=== PATIENT | female | born 1970 | race Caucasian/White ===

== ENCOUNTER 2017-04-20 01:03 | Emergency (ER) | payer BC, OTHER ==
[2017-04-20 01:14] VITALS: RESP 16
[2017-04-20] MEDS ORDERED: HYDROmorphone 0.5 MG/0.5 ML SYRINGE IVP STA (01:28)
[2017-04-20] MEDS ORDERED: ONDANSETRON 4 MG/2 ML VIAL IVP STA (01:28)
--- NOTE | 2017-04-20 01:38 | ED ---
Abdominal Pain HPI - General Chief Complaint: Abdominal Pain Stated Complaint: left side pain Time Seen by Provider: 04/20/17 01:21 Source: patient Mode of arrival: ambulatory Limitations: no limitations - History of Present Illness Initial Comments: 46-year-old female patient presents to emergency department today for evaluation of left-sided abdominal pain. Patient states that this pain started early this morning. Patient states that she fell she may been constipated so did do a suppository, states that she did have a large bowel movement however the pain has persisted. She states that it has kind of traveled from the left upper quadrant to the left lower quadrant. She states that the area is tender to the touch however does feel better when she applies pressure over it. She states that she has been very nauseous throughout the day but has not vomited. She states the pain is an intense cramping pain. She is currently rating it 10 out of 10 on a pain scale. She denies any radiation of the pain to her back. Sates that she has been urinating frequently throughout the day but denies any dysuria, hematuria, or urinary urgency. Patient denies any recent rash, fever, chills, shortness breath, chest pain, diarrhea, had a cheesy, melena, back pain , numbness, tingling, dizziness, weakness, headache, visual changes, or any other complaints. - Related Data Allergies Allergy/AdvReac Type Severity Reaction Status Date / Time Penicillins Allergy Swelling Verified 04/20/17 01:14 Review of Systems ROS Statement: Those systems with pertinent positive or pertinent negative responses have been documented in the HPI. ROS Other: All systems not noted in ROS Statement are negative. Past Medical History Past Medical History: Hyperlipidemia Additional Past Medical History / Comment(s): lupus. fibromyalgia. degenerative disc disease. History of Any Multi-Drug Resistant Organisms: MRSA Date of last positivie culture/infection: 2010 MDRO Source:: buttocks Past Surgical History: Cholecystectomy Past Psychological History: No Psychological Hx Reported Smoking Status: Current every day smoker Past Alcohol Use History: None Reported Past Drug Use History: None Reported General Exam Limitations: no limitations General appearance: alert, in no apparent distress, other (This is a well- developed, well-nourished adult female patient in no acute distress. Vital signs upon presentation are temperature 98.5F, pulse 88, respirations 16, blood pressure 134/71, pulse ox 97% on room air.) Eye exam: Present: normal appearance, PERRL, EOMI. Absent: scleral icterus, conjunctival injection, periorbital swelling ENT exam: Present: normal exam, normal oropharynx, mucous membranes moist Respiratory exam: Present: normal lung sounds bilaterally. Absent: respiratory distress, wheezes, rales, rhonchi, stridor Cardiovascular Exam: Present: regular rate, normal rhythm, normal heart sounds. Absent: systolic murmur, diastolic murmur, rubs, gallop, clicks GI/Abdominal exam: Present: soft, normal bowel sounds. Absent: distended, tenderness, guarding, rebound, rigid Back exam: Present: normal inspection. Absent: CVA tenderness (R), CVA tenderness (L) Neurological exam: Present: alert, oriented X3, CN II-XII intact Psychiatric exam: Present: normal affect, normal mood Skin exam: Present: warm, dry, intact, normal color. Absent: rash Course Vital Signs 04/20/17 04/20/17 01:10 03:07 Temperature 98.5 F 98.3 F Pulse Rate 88 87 Respiratory 16 16 Rate Blood Pressure 134/71 128/70 O2 Sat by Pulse 97 97 Oximetry Medical Decision Making - Medical Decision Making 46-year-old female patient presented for evaluation of left-sided abdominal pain. Physical exam was overall unremarkable, patient was not tender. Labs reviewed and were unremarkable. Urinalysis was also unremarkable. Patient was feeling better here in the department. She discharged home at this time to follow-up with her primary care physician. She is instructed to return here immediately for any new, worsening, or concerning symptoms. She verbalizes understanding and agrees this plan. - Lab Data Result diagrams: 04/20/17 01:40 04/20/17 01:40 Lab Results 04/20/17 04/20/17 04/20/17 Range/Units 01:40 01:40 01:55 WBC 8.0 (3.8-10.6) k/uL RBC 4.94 (3.80-5.40) m/uL Hgb 14.1 (11.4-16.0) gm/dL Hct 44.1 (34.0-46.0) % MCV 89.3 (80.0-100.0) fL MCH 28.6 (25.0-35.0) pg MCHC 32.0 (31.0-37.0) g/dL RDW 13.7 (11.5-15.5) % Plt Count 215 (150-450) k/uL Neutrophils % 62 % Lymphocytes % 27 % Monocytes % 7 % Eosinophils % 2 % Basophils % 1 % Neutrophils # 5.0 (1.3-7.7) k/uL Lymphocytes # 2.1 (1.0-4.8) k/uL Monocytes # 0.6 (0-1.0) k/uL Eosinophils # 0.2 (0-0.7) k/uL Basophils # 0.1 (0-0.2) k/uL Sodium 136 L (137-145) mmol/L Potassium 4.0 (3.5-5.1) mmol/L Chloride 109 H (98-107) mmol/L Carbon Dioxide 20 L (22-30) mmol/L Anion Gap 7 mmol/L BUN 11 (7-17) mg/dL Creatinine 0.80 (0.52-1.04) mg/dL Est GFR (MDRD) Af Amer >60 (>60 ml/min/1.73 sqM) Est GFR (MDRD) Non-Af >60 (>60 ml/min/1.73 sqM) Glucose 97 (74-99) mg/dL Calcium 9.4 (8.4-10.2) mg/dL Total Bilirubin 0.5 (0.2-1.3) mg/dL AST 24 (14-36) U/L ALT 32 (9-52) U/L Alkaline Phosphatase 91 (38-126) U/L Total Protein 6.6 (6.3-8.2) g/dL Albumin 4.0 (3.5-5.0) g/dL Amylase 57 (30-110) U/L Lipase 218 (23-300) U/L Urine Color Yellow Urine Appearance Cloudy H (Clear) Urine pH 6.0 (5.0-8.0) Ur Specific [place] 1.012 (1.001-1.035) Urine Protein Negative (Negative) Urine Glucose (UA) Negative (Negative) Urine Ketones Trace H (Negative) Urine Blood Negative (Negative) Urine Nitrite Negative (Negative) Urine Bilirubin Negative (Negative) Urine Urobilinogen <2.0 (<2.0) mg/dL Ur Leukocyte Esterase Negative (Negative) Urine RBC <1 (0-5) /hpf Urine WBC 1 (0-5) /hpf Ur Squamous Epith Cells 9 H (0-4) /hpf Urine Bacteria Rare H (None) /hpf Urine Mucus Rare H (None) /hpf - Radiology Data Radiology results: report reviewed, image reviewed Two-view x-ray of the abdomen shows no sign of intestinal obstruction or pneumoperitoneum. There are clips from cholecystectomy. Fecal pattern is normal. Lung bases are clear. There are no pathologic calcifications over the kidneys. There is no sign of a mass. Impression by Dr. Brower shows nonacute abdomen. Disposition Clinical Impression: Abdominal pain Disposition: HOME SELF-CARE Condition: Good Instructions: Abdominal Pain (ED) Additional Instructions: Increase fluids. Start with a bland diet and advance as tolerated. Take medications as directed. Follow-up with your primary care physician for recheck in 1-2 days. Return here immediately for any new, worsening, or concerning symptoms. Referrals: Nonstaff,Physician [Primary Care Provider] - 1-2 days Time of Disposition: 02:51
[2017-04-20 01:53] LABS: Basophils # (A) 0.1 k/uL (0-0.2); Basophils % (A) 1 %; CH 29.4; CHCM 33.1; Eosinophils # (A) 0.2 k/uL (0-0.7); Eosinophils % (A) 2 %; HCT 44.1 % (34.0-46.0); HDW 2.64; HGB 14.1 gm/dL (11.4-16.0); Luc % (Auto) 1; Lymphocytes # (A) 2.1 k/uL (1.0-4.8); Lymphocytes % (A) 27 %; MCH 28.6 pg (25.0-35.0); MCV 89.3 fL (80.0-100.0); Mean Platelet Volume 6.8; Monocytes # (A) 0.6 k/uL (0-1.0); Monocytes % (A) 7 %; Neutrophils % (A) 62 %; RBC 4.94 m/uL (3.80-5.40); RDW 13.7 % (11.5-15.5); WBC (Perox) 7.69
[2017-04-20 02:10] LABS: ALT 32 U/L (9-52); AST 24 U/L (14-36); Alkaline Phosphatase 91 U/L (38-126); Amylase 57 U/L (30-110); Anion Gap 7 mmol/L; Blood Urea Nitrogen 11 mg/dL (7-17); Calcium 9.4 mg/dL (8.4-10.2); Carbon Dioxide 20 mmol/L (22-30); Chloride 109 mmol/L (98-107); Glucose 97 mg/dL (74-99); Non-African American GFR(MDRD) >60 (>60 ml/min/1.73 sqM); Sodium 136 mmol/L (137-145); Total Bilirubin 0.5 mg/dL (0.2-1.3); Total Protein 6.6 g/dL (6.3-8.2)
--- NOTE | 2017-04-20 02:10 | XR ---
EXAMINATION TYPE: XR KUB DATE OF EXAM: 04/20/2017 COMPARISON: NONE HISTORY: Abdominal pain TECHNIQUE: 2 views FINDINGS: There is no sign of intestinal obstruction or pneumoperitoneum. There are clips from cholec ystectomy. Fecal pattern is normal. Lung bases are clear. There are no pathologic calcifications over the kidneys. There is no sign of a mass. IMPRESSION: Nonacute abdomen.
[2017-04-20 02:31] LABS: Appearance,Urine Cloudy (Clear); Bacteria,Urine Rare /hpf; Bilirubin,Urine Negative (Negative); Glucose,Urine (UA) Negative (Negative); Ketones,Urine Trace (Negative); Leukocyte Esterase,Urine Negative (Negative); Mucus,Urine Rare /hpf; Nitrite,Urine Negative (Negative); Particle Count 2900; Protein,Urine Negative (Negative); RBC,Urine <1 /hpf (0-5); Specific Gravity,Urine 1.012 (1.001-1.035); Squamous Epithelial Cell,Urine 9 /hpf (0-4); UA Billing (MACRO vs. MICRO) MICRO; Urobilinogen,Urine <2.0 mg/dL (<2.0); WBC,Urine 1 /hpf (0-5)
[2017-04-20] MEDS ORDERED: ONDANSETRON 4 MG ODT STARTER PACK 2 TAB BTL PO STA (02:51)
[2017-04-20 03:08] VITALS: BP 128/70; PULSE 87; TEMP 98.3
== END 2017-04-20 03:07 | disposition home or self-care (01) ==
LOC: EC 01:03
DX: R10.9 Unspecified abdominal pain (principal); R11.0 Nausea; K59.00 Constipation, unspecified; F17.200 Nicotine dependence, unspecified, uncomplicated; Z86.14 Personal history of Methicillin resistant Staphylococcus aureus infection; Z90.49 Acquired absence of other specified parts of digestive tract; Z88.0 Allergy status to penicillin
CPT/HCPCS: 99284 ×2; 96374 ×2; 96375 ×2; 36415; 80053; 82150; 83690; 85025; 81001; 74000; J2405; S0119; J1170

== ENCOUNTER 2021-04-03 06:23 | Observation (INO) | payer BC, MEDICARE ==
[2021-04-03] MEDS ORDERED: ASPIRIN 81 MG PO STA (06:48)
[2021-04-03 07:07] LABS: Basophils # (A) 0.1 k/uL (0-0.2); Basophils % (A) 1 %; Eosinophils # (A) 0.2 k/uL (0-0.7); Eosinophils % (A) 4 %; HCT 43.1 % (34.0-46.0); Lymphocytes # (A) 2.3 k/uL (1.0-4.8); Lymphocytes % (A) 42 %; MCH 30.4 pg (25.0-35.0); MCHC 32.6 g/dL (31.0-37.0); MCV 93.3 fL (80.0-100.0); Mean Platelet Volume 7.3; Monocytes # (A) 0.3 k/uL (0-1.0); Monocytes % (A) 6 %; Neutrophils # (A) 2.5 k/uL (1.3-7.7); Neutrophils % (A) 45 %; Platelet Count 207 k/uL (150-450); RBC 4.62 m/uL (3.80-5.40); RDW 13.9 % (11.5-15.5); WBC 5.6 k/uL (3.8-10.6)
--- NOTE | 2021-04-03 07:15 | ED ---
General Adult HPI - General Chief complaint: Chest Pain Stated complaint: Chest Pain Time Seen by Provider: 04/03/21 06:34 Source: patient Mode of arrival: wheelchair Limitations: no limitations - History of Present Illness Initial comments: 50-year-old female with a past medical history of hypertension, lupus, fibromyalgia presents to the emergency room for a chief complaint of chest pain. Patient states that about an hour prior to get a squeezing chest pain. States it woke her up from [facility]. Patient states she and first was nauseous and diaphoretic. Patient states that has resolved but she is still having the squeezing pain in her chest. Denies any radiating pain. Patient does admit to smoking history and current smoker status. Patient has a history of hyperlipidemia for which she takes medications however denies hypertension or diabetes.Patient has no other complaints at this time including shortness of breath, abdominal pain, nausea or vomiting, headache, or visual changes. - Related Data Home Medications Medication Instructions Recorded Confirmed Atorvastatin Calcium [Lipitor] 20 mg PO DAILY 04/03/21 04/03/21 DULoxetine HCL [Cymbalta] 20 mg PO DAILY 04/03/21 04/03/21 HYDROcodone/APAP 10-325MG [[place] 1 tab PO Q6HR PRN 04/03/21 04/03/21 10-325] Hydroxychloroquine Sulfate 200 mg PO BID 04/03/21 04/03/21 [Plaquenil] Allergies Allergy/AdvReac Type Severity Reaction Status Date / Time Penicillins Allergy Swelling Verified 04/03/21 08:10 Review of Systems ROS Statement: Those systems with pertinent positive or pertinent negative responses have been documented in the HPI. ROS Other: All systems not noted in ROS Statement are negative. Past Medical History Past Medical History: Hyperlipidemia Additional Past Medical History / Comment(s): lupus. fibromyalgia. degenerative disc disease. History of Any Multi-Drug Resistant Organisms: MRSA Date of last positivie culture/infection: 2010 MDRO Source:: buttocks Past Surgical History: Cholecystectomy Past Psychological History: No Psychological Hx Reported Smoking Status: Current every day smoker Past Alcohol Use History: None Reported Past Drug Use History: None Reported General Exam Limitations: no limitations General appearance: alert, in no apparent distress Head exam: Present: atraumatic, normocephalic, normal inspection Eye exam: Present: normal appearance, PERRL, EOMI. Absent: scleral icterus, conjunctival injection, periorbital swelling ENT exam: Present: normal exam, mucous membranes moist Neck exam: Present: normal inspection, full ROM. Absent: tenderness, meningismus, lymphadenopathy Respiratory exam: Present: normal lung sounds bilaterally. Absent: respiratory distress, wheezes, rales, rhonchi, stridor Cardiovascular Exam: Present: regular rate, normal rhythm, normal heart sounds GI/Abdominal exam: Present: soft, normal bowel sounds. Absent: distended, tenderness, guarding, rebound, rigid Neurological exam: Present: alert Course Vital Signs 04/03/21 04/03/21 04/03/21 06:26 06:38 07:01 Temperature 98.3 F Pulse Rate 101 H 98 88 Respiratory 16 18 Rate Blood Pressure 153/92 126/90 O2 Sat by Pulse 97 99 Oximetry 04/03/21 07:46 Temperature Pulse Rate 68 Respiratory 18 Rate Blood Pressure 124/78 O2 Sat by Pulse 99 Oximetry EKG Findings - EKG Comments: EKG Findings:: Normal sinus rhythm, ventricular rate 86, [place] interval 138, QTc 461 Medical Decision Making - Medical Decision Making Vitals are stable. Patient is well-appearing. HPI and physical exam as documented. CBC and CMP unremarkable. Troponin initially negative. EKG nonischemic. However given typical symptoms as well as risk factors patient will be admitted for cardiology consultation and repeat troponin. - Lab Data Result diagrams: 04/03/21 06:56 04/03/21 06:56 Lab Results 04/03/21 04/03/21 04/03/21 Range/Units 06:56 06:56 06:56 WBC 5.6 (3.8-10.6) k/uL RBC 4.62 (3.80-5.40) m/uL Hgb 14.0 (11.4-16.0) gm/dL Hct 43.1 (34.0-46.0) % MCV 93.3 (80.0-100.0) fL MCH 30.4 (25.0-35.0) pg MCHC 32.6 (31.0-37.0) g/dL RDW 13.9 (11.5-15.5) % Plt Count 207 (150-450) k/uL MPV 7.3 Neutrophils % 45 % Lymphocytes % 42 % Monocytes % 6 % Eosinophils % 4 % Basophils % 1 % Neutrophils # 2.5 (1.3-7.7) k/uL Lymphocytes # 2.3 (1.0-4.8) k/uL Monocytes # 0.3 (0-1.0) k/uL Eosinophils # 0.2 (0-0.7) k/uL Basophils # 0.1 (0-0.2) k/uL PT 9.6 (9.0-12.0) sec INR 0.9 (<1.2) APTT 21.8 L (22.0-30.0) sec D-Dimer 0.43 (<0.60) mg/L FEU Sodium 139 (137-145) mmol/L Potassium 4.1 (3.5-5.1) mmol/L Chloride 110 H (98-107) mmol/L Carbon Dioxide 22 (22-30) mmol/L Anion Gap 7 mmol/L BUN 12 (7-17) mg/dL Creatinine 0.80 (0.52-1.04) mg/dL Est GFR (CKD-EPI)AfAm >90 (>60 ml/min/1.73 sqM) Est GFR (CKD-EPI)NonAf 86 (>60 ml/min/1.73 sqM) Glucose 103 H (74-99) mg/dL Calcium 9.1 (8.4-10.2) mg/dL Magnesium 2.0 (1.6-2.3) mg/dL Total Bilirubin 0.4 (0.2-1.3) mg/dL AST 28 (14-36) U/L ALT 21 (4-34) U/L Alkaline Phosphatase 86 (38-126) U/L Troponin I (0.000-0.034) ng/mL NT-Pro-B Natriuret Pep pg/mL Total Protein 6.6 (6.3-8.2) g/dL Albumin 3.8 (3.5-5.0) g/dL Lipase 221 (23-300) U/L 04/03/21 04/03/21 Range/Units 06:56 06:56 WBC (3.8-10.6) k/uL RBC (3.80-5.40) m/uL Hgb (11.4-16.0) gm/dL Hct (34.0-46.0) % MCV (80.0-100.0) fL MCH (25.0-35.0) pg MCHC (31.0-37.0) g/dL RDW (11.5-15.5) % Plt Count (150-450) k/uL MPV Neutrophils % % Lymphocytes % % Monocytes % % Eosinophils % % Basophils % % Neutrophils # (1.3-7.7) k/uL Lymphocytes # (1.0-4.8) k/uL Monocytes # (0-1.0) k/uL Eosinophils # (0-0.7) k/uL Basophils # (0-0.2) k/uL PT (9.0-12.0) sec INR (<1.2) APTT (22.0-30.0) sec D-Dimer (<0.60) mg/L FEU Sodium (137-145) mmol/L Potassium (3.5-5.1) mmol/L Chloride (98-107) mmol/L Carbon Dioxide (22-30) mmol/L Anion Gap mmol/L BUN (7-17) mg/dL Creatinine (0.52-1.04) mg/dL Est GFR (CKD-EPI)AfAm (>60 ml/min/1.73 sqM) Est GFR (CKD-EPI)NonAf (>60 ml/min/1.73 sqM) Glucose (74-99) mg/dL Calcium (8.4-10.2) mg/dL Magnesium (1.6-2.3) mg/dL Total Bilirubin (0.2-1.3) mg/dL AST (14-36) U/L ALT (4-34) U/L Alkaline Phosphatase (38-126) U/L Troponin I <0.012 (0.000-0.034) ng/mL NT-Pro-B Natriuret Pep 173 pg/mL Total Protein (6.3-8.2) g/dL Albumin (3.5-5.0) g/dL Lipase (23-300) U/L Disposition Clinical Impression: Chest pain Disposition: ADMITTED IP TO THIS [facility] Is patient prescribed a controlled substance at d/c from ED?: No Referrals: Nonstaff,Physician [Primary Care Provider] - 1-2 days Time of Disposition: 08:33
[2021-04-03 07:19] LABS: ALT 21 U/L (4-34); AST 28 U/L (14-36); African American GFR (CKD) >90 (>60 ml/min/1.73 sqM); Albumin 3.8 g/dL (3.5-5.0); Alkaline Phosphatase 86 U/L (38-126); Anion Gap 7 mmol/L; Blood Urea Nitrogen 12 mg/dL (7-17); Calcium 9.1 mg/dL (8.4-10.2); Carbon Dioxide 22 mmol/L (22-30); Chloride 110 mmol/L (98-107); Glucose 103 mg/dL (74-99); Lipase 221 U/L (23-300); Non-African American GFR(CKD) 86 (>60 ml/min/1.73 sqM); Potassium 4.1 mmol/L (3.5-5.1); Sodium 139 mmol/L (137-145); Total Bilirubin 0.4 mg/dL (0.2-1.3); Total Protein 6.6 g/dL (6.3-8.2)
[2021-04-03 07:34] LABS: INR 0.9 (<1.2); Prothrombin Time 9.6 sec (9.0-12.0)
[2021-04-03 07:41] LABS: Partial Thromboplastin Time 21.8 sec (22.0-30.0)
--- NOTE | 2021-04-03 07:48 | XR ---
EXAMINATION TYPE: XR chest 2V DATE OF EXAM: 04/03/2021 COMPARISON: None HISTORY: 50-year-old female with chest pain. TECHNIQUE: PA and lateral views FINDINGS: The cardiomediastinal silhouette, aorta, and pulmonary vasculature are within normal limits. Subtle p atchy interstitial changes. No consolidation or pleural effusion. IMPRESSION: Subtle patchy interstitial changes. Correlate to exclude bronchitis or underlying atypical or COVID p neumonia.
[2021-04-03] MEDS ORDERED: NITROGLYCERIN SL TABS 0.4 MG TAB SUBLINGUAL PRN (08:33)
--- NOTE | 2021-04-03 08:59 | P.HPIM ---
<Hieu Whitman - Last Filed: 04/03/21 16:58> History of Present Illness H&P Date: 04/03/21 History of Presenting Illness: Patient is a 50-year-old female with a past medical history of hyperlipidemia, nicotine use, lupus, and fibromyalgia. She presented to the emergency department with a chief complaint of chest pain. patient reports that she was awoken this morning with a pain to her mid sternal chest. Patient describes this pain as a tightness states it was almost like a contraction. The patient states this pain was constant and shortly after accompanied by nausea and diaphoresis. She denies any radiation of pain or experiencing any other complaints including shortness of breath, cough, or congestion. Patient was seen and fully evaluated in the emergency department. CBC, BMP, coags, liver profile, troponin, and d- dimer are all unremarkable .EKG normal sinus rhythm at 86 bpm with no noted T- wave or ST abnormalities. chest x-ray revealing subtle patchy interstitial changes possible bronchitis versus underlying atypical for Covid pneumonia. Patient was admitted under our services with consultation to cardiology. upon physical examination patient reports mild tightness to her chest remains in midsternal area. She denies having any recent infections or exposure to known ill contacts. Reports that she is vaccinated for Covid. She denies having any recent fevers, chills, headache, lightheadedness, dizziness, changes in her vision or hearing, palpitations, shortness of breath, dyspnea with exertion, cough or congestion, abdominal pain, vomiting, or experiencing any numbness/tingling/weakness/swelling in her extremities. Review of systems: Pertinent positives and negatives as discussed in HPI, a complete review of systems was performed and all other systems are negative. Physical exam: Vital signs reviewed and stable. General: Nontoxic, no distress and appears stated age. Derm: Skin warm and dry, normal coloration for ethnicity. Head: Atraumatic, normocephalic and symmetric. Eyes: EOMs intact, no lid lag, and anicteric sclera Mouth: no lip lesions, mucus membranes moist Cardiovascular: regular rate and rhythm with normal S1S2, no murmur, positive posterior tibial pulses bilaterally, and cap refill < 2 seconds. Lungs: Respirations even, regular, and unlabored on room air. Lungs CTA bilaterally, no rhonchi, no rales, no wheezing, and no accessory muscle usage. Abdominal: soft, nontender to palpation, no guarding, no appreciable organomegaly Ext: ROM intact. No gross muscle atrophy, no edema, no contractures Neuro: Speech clear, face symmetrical and CN II-XII grossly intact with no noted focal neuro deficits Psych: Alert and oriented to person, place, time, and situation. Appropriate and pleasant affect. Assessment and Plan of Care: Atypical chest pain/tightness -.EKG normal sinus rhythm at 86 bpm with no noted T-wave or ST abnormalities. Troponin < 0.012. D-dimer negative. -Chest x-ray revealing subtle patchy interstitial changes possible bronchitis versus underlying atypical for Covid pneumonia. -Cardiology consult -Telemetry monitoring -Trend troponins -Cardiac diet -Aspirin, atorvastatin -Lipid profile with a.m. labs. Hyperlipidemia Continuation of daily medication regimen with atorvastatin. Lipid profile with a.m. labs. Nicotine use Continue to educate on and encourage the benefits of smoking cessation and the risks associated with continued use. Nicotine patch. Other chronic medical conditions include: Lupus and fibromyalgia Symptomatic care and pain management continuation of daily medication regimen. The patient is admitted with an anticipated greater than 2 midnight stay for evaluation of chest pain. CODE STATUS: Full code DVT prophylaxis: Heparin Discussed with: Patient, pt's , and RN Anticipated discharge date: 1-[address]: home A total of 45 minutes was spent on the care of this complex patient more than 50% of the time was spent in counseling and care coordination. Past Medical History Past Medical History: Hyperlipidemia Additional Past Medical History / Comment(s): lupus. fibromyalgia. degenerative disc disease. History of Any Multi-Drug Resistant Organisms: MRSA Date of last positivie culture/infection: 2010 MDRO Source:: buttocks Past Surgical History: Cholecystectomy Past Psychological History: No Psychological Hx Reported Smoking Status: Current every day smoker Past Alcohol Use History: None Reported Past Drug Use History: None Reported Medications and Allergies Home Medications Medication Instructions Recorded Confirmed Type Atorvastatin Calcium [Lipitor] 20 mg PO DAILY 04/03/21 04/03/21 History DULoxetine HCL [Cymbalta] 20 mg PO DAILY 04/03/21 04/03/21 History HYDROcodone/APAP 10-325MG [[place] 1 tab PO Q6HR PRN 04/03/21 04/03/21 History 10-325] Hydroxychloroquine Sulfate 200 mg PO BID 04/03/21 04/03/21 History [Plaquenil] Allergies Allergy/AdvReac Type Severity Reaction Status Date / Time Penicillins Allergy Swelling Verified 04/03/21 08:10 Physical Exam Vitals: Vital Signs Temp Pulse Resp BP Pulse Ox 04/03/21 08:53 69 18 117/75 98 04/03/21 07:46 68 18 124/78 99 04/03/21 07:01 88 18 126/90 99 04/03/21 06:38 98 04/03/21 06:26 98.3 F 101 H 16 153/92 97 Intake and Output 04/02/21 04/03/21 04/03/21 22:59 06:59 14:59 Other: Weight 87.09 kg Results CBC & Chem 7: 04/03/21 06:56 04/03/21 06:56 Labs: Abnormal Lab Results - Last 24 Hours (Table) 04/03/21 04/03/21 Range/Units 06:56 06:56 APTT 21.8 L (22.0-30.0) sec Chloride 110 H (98-107) mmol/L Glucose 103 H (74-99) mg/dL <Olivia Vinson - Last Filed: 04/03/21 18:20> Physical Exam Osteopathic Statement: *. No significant issues noted on an osteopathic structural exam other than those noted in the History and Physical/Consult. Vitals: Vital Signs Temp Pulse Pulse Resp BP BP Pulse Ox 04/03/21 15:00 98.1 F 75 18 118/83 100 04/03/21 09:07 98.0 F 63 18 120/78 98 04/03/21 09:00 98.3 F 69 18 117/75 98 04/03/21 08:53 69 18 117/75 98 04/03/21 07:46 68 18 124/78 99 04/03/21 07:01 88 18 126/90 99 04/03/21 06:38 98 04/03/21 06:26 98.3 F 101 H 16 153/92 97 Intake and Output 04/03/21 04/03/21 04/03/21 06:59 14:59 22:59 Intake Total 240 Balance 240 Intake: Oral 240 Other: # Voids 1 Weight 87.09 kg 87.09 kg Results CBC & Chem 7: 04/03/21 06:56 04/03/21 06:56 Labs: Abnormal Lab Results - Last 24 Hours (Table) 04/03/21 04/03/21 Range/Units 06:56 06:56 APTT 21.8 L (22.0-30.0) sec Chloride 110 H (98-107) mmol/L Glucose 103 H (74-99) mg/dL Assessment and Plan Assessment: Patient seen and evaluated by me independently. Patient was also seen by ARTURO, the original author of this note. I am in agreement with the subjective, physical exam, and assessment and plan as documented with the addition/changes of my exam and assessment below. Gen: awake, alert HEENT: normocephalic, atraumatic, good hearing acuity, moist mucous membranes Resp: good air exchange, breathing comfortably with no accessory muscle use, mild left-sided posterior crackles, no wheezing CVS: good distal perfusion x 4, regular rate and rhythm without murmurs GI: soft, NTTP, ND : no SPT, no CVAT, coulter catheter not present MSK: no pitting edema, no clubbing, positive pain to palpation of the right upper chest Neuro: non-focal, moving all extremities Psych: cooperative, euthymic mood Plan: Cardiology consult Stress test Trend troponins Pain control Telemetry for 24 hours Likely discharge tomorrow morning
[2021-04-03] MEDS: HYDROXYCHLOROQUINE SULFATE 200 MG TAB PO SCH ×2 (10:27→20:57)
[2021-04-03] MEDS: ATORVASTATIN 20 MG TAB PO SCH (10:27)
[2021-04-03] MEDS: DULoxetine HCL 20 MG CAPSULE.DR PO SCH (10:27)
--- NOTE | 2021-04-03 11:17 | P.CRDCN ---
History of Present Illness History of present illness: HISTORY OF PRESENTING ILLNESS This is a pleasant 50-year-old with past medical history significant for lupus, rheumatoid arthritis, fibromyalgia, hyperlipidemia, tobacco abuse who presents s econdary to episode of chest pain. Patient states this woke her up from her sleep and normally she was used to some degree of aches and pains however was so intense that she presented to emergency department. She denied any associated shortness breath. She did feel somewhat nauseous and somewhat flushed however no diaphoresis. She does not usually get these episodes. She received aspirin and emergency department and no other medications and it slowly eased up. She has had a stress test approximately 2 years ago however no recent testing. She had previously stopped smoking however started up again. Occasional alcohol and no illicit drugs. Family history of father with a stroke in his 70s. She denies any further chest pain since admission although does have some reproducible discomfort on exam. DIAGNOSTICS I'll count 5.6, hemoglobin 14.0, d-dimer 0.43, creatinine 0.8, troponin less than 0.0122, proBNP 173, preston virus not detected, EKG shows normal sinus rhythm, normal axis, minimal 0.[address] depressions in V4 through V6. Chest x- ray shows subtle patchy interstitial changes correlate to exclude bronchitis or underlying atypical or Covid pneumonia. REVIEW OF SYSTEMS At the time of my exam: CONSTITUTIONAL: Denies fever or chills. CARDIOVASCULAR: +chest pain, no shortness of breath, orthopnea, PND or palpitations. RESPIRATORY: Denies cough. GASTROINTESTINAL: Denies abdominal pain, diarrhea, constipation, nausea or vomiting. MUSCULOSKELETAL: Denies myalgias. NEUROLOGIC: Denies numbness, tingling or weakness. ENDOCRINE: Denies fatigue, weight change, polydipsia or polyurina. GENITOURINARY: Denies burning, hematuria or urgency with micturation. HEMATOLOGIC: Denies history of anemia or bleeding. PHYSICAL EXAMINATION Vital signs reviewed. CONSTITUTIONAL: No apparent distress. HEENT: Head is normocephalic. Pupils are equal, round. Sclerae anicteric. Mucous membranes of the mouth are moist. No JVD. No carotid bruit. CHEST EXAMINATION: Lungs are clear to auscultation. No chest wall tenderness is noted on palpation or with deep breathing. HEART EXAMINATION: Regular rate and rhythm. S1, S2 heard. No murmurs, gallops or rub. ABDOMEN: Soft, nontender. Positive bowel sounds. EXTREMITIES: 2+ peripheral pulses, no lower extremity edema and no calf tenderness. NEUROLOGIC EXAMINATION: Patient is awake, alert and oriented x3. ASSESSMENT 1. Atypical chest pain 2. Interstitial changes may be consistent with bronchitis versus pneumonia 3. Hyperlipidemia 4. Lupus 5. Rheumatoid arthritis 6. Fibromyalgia 7. Tobacco abuse PLAN We will check 2-D echo to evaluate for left ventricular function as well as a stress echo to rule out any inducible ischemia. Patient's chest pain appears atypical and is mildly reproducible on exam however states the majority of the pain felt a little bit different. Discussed tobacco cessation. If stress test unrevealing, patient may be discharged home from cardiology standpoint. Past Medical History Past Medical History: Hyperlipidemia Additional Past Medical History / Comment(s): lupus. fibromyalgia. degenerative disc disease. History of Any Multi-Drug Resistant Organisms: MRSA Date of last positivie culture/infection: 2010 MDRO Source:: buttocks Past Surgical History: Cholecystectomy Past Anesthesia/Blood Transfusion Reactions: No Reported Reaction Past Psychological History: No Psychological Hx Reported Smoking Status: Current every day smoker Past Alcohol Use History: None Reported Past Drug Use History: None Reported Medications and Allergies Home Medications Medication Instructions Recorded Confirmed Type Atorvastatin Calcium [Lipitor] 20 mg PO DAILY 04/03/21 04/03/21 History DULoxetine HCL [Cymbalta] 20 mg PO DAILY 04/03/21 04/03/21 History HYDROcodone/APAP 10-325MG [[place] 1 tab PO Q6HR PRN 04/03/21 04/03/21 History 10-325] Hydroxychloroquine Sulfate 200 mg PO BID 04/03/21 04/03/21 History [Plaquenil] Allergies Allergy/AdvReac Type Severity Reaction Status Date / Time Penicillins Allergy Swelling Verified 04/03/21 08:10 Physical Exam Vitals: Vital Signs Temp Pulse Pulse Resp BP BP Pulse Ox 04/03/21 09:07 98.0 F 63 18 120/78 98 04/03/21 09:00 98.3 F 69 18 117/75 98 04/03/21 08:53 69 18 117/75 98 04/03/21 07:46 68 18 124/78 99 04/03/21 07:01 88 18 126/90 99 04/03/21 06:38 98 04/03/21 06:26 98.3 F 101 H 16 153/92 97 Intake and Output 04/02/21 04/03/21 04/03/21 22:59 06:59 14:59 Other: Weight 87.09 kg 87.09 kg Results 04/03/21 06:56 04/03/21 06:56 Cardiac Enzymes 04/03/21 04/03/21 04/03/21 Range/Units 06:56 06:56 09:47 AST 28 (14-36) U/L Troponin I <0.012 <0.012 (0.000-0.034) ng/mL Coagulation 04/03/21 Range/Units 06:56 PT 9.6 (9.0-12.0) sec APTT 21.8 L (22.0-30.0) sec CBC 04/03/21 Range/Units 06:56 WBC 5.6 (3.8-10.6) k/uL RBC 4.62 (3.80-5.40) m/uL Hgb 14.0 (11.4-16.0) gm/dL Hct 43.1 (34.0-46.0) % Plt Count 207 (150-450) k/uL Comprehensive Metabolic Panel 04/03/21 Range/Units 06:56 Sodium 139 (137-145) mmol/L Potassium 4.1 (3.5-5.1) mmol/L Chloride 110 H (98-107) mmol/L Carbon Dioxide 22 (22-30) mmol/L BUN 12 (7-17) mg/dL Creatinine 0.80 (0.52-1.04) mg/dL Glucose 103 H (74-99) mg/dL Calcium 9.1 (8.4-10.2) mg/dL AST 28 (14-36) U/L ALT 21 (4-34) U/L Alkaline Phosphatase 86 (38-126) U/L Total Protein 6.6 (6.3-8.2) g/dL Albumin 3.8 (3.5-5.0) g/dL Current Medications Generic Name Dose Route Start Last Admin Trade Name Freq PRN Reason Stop Dose Admin Hydrocodone Bitart/Acetaminophen 1 each 04/03/21 08:59 Hydrocodone/Apap 10-325mg 1 Each Tab PO Q6HR PRN Pain Aspirin 325 mg 04/04/21 09:00 Aspirin 325 Mg Tab PO DAILY [facility] Atorvastatin Calcium 20 mg 04/03/21 09:15 04/03/21 10:27 Atorvastatin 20 Mg Tab PO 20 mg DAILY KEVIN Administration Duloxetine HCl 20 mg 04/03/21 09:00 04/03/21 10:27 Duloxetine Hcl 20 Mg Capsule.Dr PO 20 mg DAILY KEVIN Administration Hydroxychloroquine Sulfate 200 mg 04/03/21 09:15 04/03/21 10:27 Hydroxychloroquine Sulfate 200 Mg Tab PO 200 mg BID KEVIN Administration Nitroglycerin 0.4 mg 04/03/21 08:33 Nitroglycerin Sl Tabs 0.4 Mg Tab SUBLINGUAL Q5M PRN Chest Pain Intake and Output 04/02/21 04/03/21 04/03/21 22:59 06:59 14:59 Other: Weight 87.09 kg 87.09 kg Patient Weight 04/04/21 06:59 Weight 87.09 kg 04/03/21 06:56 04/03/21 06:56
--- NOTE | 2021-04-03 13:18 | P.STRESS ---
- Stress Test Note Stress Test Results/Findings: Exam Performed: stress echo exercise Exam Date: 04/03/21 Reason for Exam: CP Height: 5 ft 7 in Weight: 87.09 kg Protocol: STRESS ECHO EXERCISE Stage: 1 Duration of Exercise: 3:00 Resting Heart Rate: 67 Resting Blood Pressure: 120/85 Maximum Achieved Heart Rate: 158 Maximum Achieved Blood Pressure: 183/109 85% PMHR: 144 100% PMHR: 169 METS: Technologist Comment: Stress Test Results/Findings: Patient underwent exercise stress echo with a Lb protocol treadmill stress test. Patient exercised into Stage 1 for a total of 3 minutes. Patient's maximum heart rate was 158 which represented 93 % age-predicted maximum heart rate. Stress EKG portion: At baseline patient's EKG showed normal sinus rhythm, normal axis, no significant ST or T wave abnormalities. At peak exercise, EKG showed nondiagnostic and nonsignificant 0.[address] depressions in the inferior and lateral leads. Stress echo portion: 2-D echocardiogram was performed in the parasternal long, personal short, apical 2 and apical four-chamber views at rest, peak exercise and in recovery. At baseline, echocardiogram showed left ventricular ejection fraction 55% without wall motion abnormalities. With peak exercise, echocardiogram shows improvement in left ventricular ejection fraction, increase contractility, decrease in left ventricular end systolic dimension without wall motion abnormalities consistent with a normal response to exercise. Conclusions: 1. Normal EKG and echo response to exercise without evidence of inducible ischemia. 2. Poor exercise capacity.
[2021-04-03] MEDS: HYDROcodone/APAP 10-325MG 1 EACH TAB PO PRN ×2 (14:56→20:57)
[2021-04-04] MEDS: HEPARIN SODIUM,PORCINE/PF 5,000 UNIT/0.5 ML SYRINGE SQ SCH ×3 (02:12→08:29)
[2021-04-04 03:39] VITALS: RESP 16
[2021-04-04 06:32] LABS: African American GFR (CKD) >90 (>60 ml/min/1.73 sqM); Anion Gap 4 mmol/L; Blood Urea Nitrogen 13 mg/dL (7-17); Calcium 8.6 mg/dL (8.4-10.2); Carbon Dioxide 22 mmol/L (22-30); Chloride 108 mmol/L (98-107); Glucose 94 mg/dL (74-99); Non-African American GFR(CKD) 85 (>60 ml/min/1.73 sqM); Potassium 4.3 mmol/L (3.5-5.1); Sodium 134 mmol/L (137-145)
[2021-04-04] MEDS: DULoxetine HCL 20 MG CAPSULE.DR PO SCH (08:29)
[2021-04-04] MEDS: HYDROXYCHLOROQUINE SULFATE 200 MG TAB PO SCH (08:29)
[2021-04-04] MEDS: ATORVASTATIN 20 MG TAB PO SCH (08:29)
--- NOTE | 2021-04-04 08:29 | XR ---
EXAMINATION TYPE: XR chest 2V DATE OF EXAM: 04/04/2021 COMPARISON: Chest x-ray 04/03/2021 HISTORY: Pneumonia TECHNIQUE: Frontal and lateral views of the chest are obtained. FINDINGS: There is no focal air space opacity, pleural effusion, or pneumothorax seen. The cardiac silhouette size is within normal limits. Suspect some coronary artery calcification may be present. There is elevation and eventration of the right hemidiaphragm. Arthropathy again noted within the harley ulders, there is thoracic spondylosis. The osseous structures are intact. Postop changes are noted in the upper abdomen. IMPRESSION: No acute cardiopulmonary process. Possible underlying coronary artery disease.
[2021-04-04 08:38] VITALS: BP 105/67; PULSE 65; TEMP 97.6
[2021-04-04] MEDS ORDERED: ASPIRIN 325 MG TAB PO SCH (09:00)
[2021-04-04 09:21] LABS: HCT 36.7 % (37.2-46.3); MCH 30.3 pg (27.0-32.0); MCHC 32.7 g/dL (32.0-37.0); MCV 92.7 fL (80.0-97.0); Mean Platelet Volume 9.5 fL (9.5-12.2); Platelet Count 175 X 10*3/uL (140-440); RBC 3.96 X 10*6/uL (4.10-5.20); RDW 14.8 % (11.5-14.5); WBC 4.72 X 10*3/uL (4.50-10.00)
[2021-04-04 10:02] LABS: Chol/HDL Ratio 3.27 Ratio; LDL Cholesterol,Calculated 86.8 mg/dL (0.0-131.0); VLDL Calculation 13.78 mg/dL (5.00-40.00)
--- NOTE | 2021-04-04 10:56 | P.DS ---
Providers Date of admission: 04/03/21 08:40 Expected date of discharge: 04/04/21 Attending physician: Olivia Vinson MD Primary care physician: Physician Nonstaff Hospital Course: Discharge Diagnosis: Atypical chest pain/tightness, acute coronary event ruled out Hyperlipidemia Nicotine use Lupus Fibromyalgia Hospital Course: Patient is a 50-year-old female with a past medical history of hyperlipidemia, nicotine use, lupus, and fibromyalgia. She presented to the emergency department with a chief complaint of chest pain. patient reports that she was awoken this morning with a pain to her mid sternal chest. Patient describes this pain as a tightness states it was almost like a contraction. The patient states this pain was constant and shortly after accompanied by nausea and diaphoresis. She denies any radiation of pain or experiencing any other complaints including shortness of breath, cough, or congestion. Patient was seen and fully evaluated in the emergency department. CBC, BMP, coags, liver profile, troponin, and d- dimer are all unremarkable .EKG normal sinus rhythm at 86 bpm with no noted T- wave or ST abnormalities. chest x-ray revealing subtle patchy interstitial changes possible bronchitis versus underlying atypical for Covid pneumonia. Covid PCR negative. Patient was admitted under our services with consultation to cardiology. upon physical examination patient reports mild tightness to her chest remains in midsternal area. She was monitored overnight and troponins trended and remained negative at less than 0.012. She underwent a stress test/echo which was reported to be a normal EKG and echo response to exercise without evidence of inducible ischemia. Ruling out acute coronary syndrome and was cleared by cardiology. A repeat 2 view x-ray was completed this morning which was negative for acute cardiopulmonary process. Lipid profile normal findings. Patient reports resolution of chest pain and has had no further episodes of nausea or diaphoresis. Patient is medically stable for discharge home at this time. Patient was given a list of primary care providers and instructed that she will need to establish care. Patient instructed that she will need to follow up with Dr. Sims, rehab liaison in 1 week. Physical exam: Vital signs reviewed and stable. General: Nontoxic, no distress and appears stated age. Derm: Skin warm and dry, normal coloration for ethnicity. Head: Atraumatic, normocephalic and symmetric. Eyes: EOMs intact, no lid lag, and anicteric sclera Mouth: No lip lesions, mucus membranes moist Cardiovascular: Regular rate and rhythm with normal S1S2, no murmur, positive posterior tibial pulses bilaterally, and cap refill < 2 seconds. Lungs: Respirations even, regular, and unlabored on room air. Lungs CTA bilaterally, no rhonchi, no rales, no wheezing, and no accessory muscle usage. Abdominal: soft, nontender to palpation, no guarding, no appreciable organomegaly Ext: ROM intact. No gross muscle atrophy, no edema, no contractures Neuro: Speech clear, face symmetrical and CN II-XII grossly intact with no noted focal neuro deficits Psych: Alert and oriented to person, place, time, and situation. Appropriate and pleasant affect. A total of 45 minutes of time were spent preparing this complex discharge summary. Patient Condition at Discharge: Stable Plan - Discharge Summary Discharge Rx Participant: No New Discharge Prescriptions: Continue HYDROcodone/APAP 10-325MG [[place] 10-325] 1 tab PO Q6HR PRN PRN Reason: Pain DULoxetine HCL [Cymbalta] 20 mg PO DAILY Hydroxychloroquine Sulfate [Plaquenil] 200 mg PO BID Atorvastatin Calcium [Lipitor] 20 mg PO DAILY Discharge Medication List Atorvastatin Calcium [Lipitor] 20 mg PO DAILY 04/03/21 [History] DULoxetine HCL [Cymbalta] 20 mg PO DAILY 04/03/21 [History] HYDROcodone/APAP 10-325MG [[place] 10-325] 1 tab PO Q6HR PRN 04/03/21 [History] Hydroxychloroquine Sulfate [Plaquenil] 200 mg PO BID 04/03/21 [History] Follow up Appointment(s)/Referral(s): Emanuel Sims DO [STAFF PHYSICIAN] - 1 Week (office will call and schedule) Nonstasilverio,Physician [Primary Care Provider] - 1-2 days Patient Instructions/Handouts: Chest Pain (DC) Activity/Diet/Wound Care/Special Instructions: Thank you for allowing us to participate in your care, it was a pleasure having you for our patient. Please continue to take medications as directed and keep all follow-up appointments. Is strongly advised to stop smoking. It is a difficult journey, but definitely worth all of the hard work! Discharge Disposition: HOME SELF-CARE
--- NOTE | 2021-04-06 12:43 | ECHOF ---
Referral Reason:re: CP MEASUREMENTS -------- HEIGHT: 170.2 cm WEIGHT: 87.1 kg BP: IVSd: 1.1 cm (0.6 - 1.1) LVIDd: 5.2 cm (3.9 - 5.3) LVPWd: 1.1 cm (0.6 - 1.1) IVSs: 2.0 cm LVIDs: 2.3 cm LVPWs: 1.8 cm LAESV Index (A-L): 31.38 ml/m Ao Diam: 3.4 cm (2.0 - 3.7) AV Cusp: 1.9 cm (1.5 - 2.6) LA Diam: 2.2 cm (2.7 - 3.8) MV EXCURSION: 11.106 mm (> 18.000) MV EF SLOPE: 128 mm/s (70 - 150) EPSS: 1.4 cm MV E Alfred: 0.88 m/s MV DecT: 193 ms MV A Alfred: 0.72 m/s MV E/A Ratio: 1.21 RAP: 5.00 mmHg RVSP: 11.59 mmHg FINDINGS -------- This was a technically difficult study with suboptimal views. The left ventricular size is normal. Left ventricular wall thickness is normal. Overall left vent ricular systolic function is normal with, an EF between 55 - 60 %. The diastolic filling pattern is normal for the age of the patient 7.78. The right ventricle is normal in size. LA is midly dilated 29-33ml/m2. The right atrial size is normal. Lumason used The aortic valve is trileaflet and appears structurally normal. The mitral valve is normal. There is trace mitral regurgitation. The tricuspid valve appears structurally normal. Trace tricuspid regurgitation present. Right andrea tricular systolic pressure is normal at < 35 mmHg. There is no pulmonic regurgitation present. The aortic root size is normal. IVC Not well visulized. There is no pericardial effusion. CONCLUSIONS -------- 1. The left ventricular size is normal. 2. Left ventricular wall thickness is normal. 3. Overall left ventricular systolic function is normal with, an EF between 55 - 60 %. 4. The diastolic filling pattern is normal for the age of the patient 7.78 5. LA is midly dilated 29-33ml/m2. 6. There is trace mitral regurgitation. 7. Trace tricuspid regurgitation present. 8. There is no pericardial effusion. EXCEPTIONAL CHILDREN'S TEACHER: Julia Teresa RDCS
== END 2021-04-04 11:23 | disposition home or self-care (01) ==
LOC: EC 06:23 → 6NMEDSUR 08:40
PROVIDERS: ADMIT Internal Medicine; ATTEND Internal Medicine
DX: R07.89 Other chest pain (principal); R91.8 Other nonspecific abnormal finding of lung field; R11.0 Nausea; R61 Generalized hyperhidrosis; I10 Essential (primary) hypertension; E78.5 Hyperlipidemia, unspecified; M06.9 Rheumatoid arthritis, unspecified; M79.7 Fibromyalgia; M32.9 Systemic lupus erythematosus, unspecified; F17.200 Nicotine dependence, unspecified, uncomplicated; Z20.822 Contact with and (suspected) exposure to COVID-19; Z79.899 Other long term (current) drug therapy; Z88.0 Allergy status to penicillin; Z86.14 Personal history of Methicillin resistant Staphylococcus aureus infection; Z90.49 Acquired absence of other specified parts of digestive tract; Z82.3 Family history of stroke; Z71.6 Tobacco abuse counseling
CPT/HCPCS: 99285; 36415; 93005; 93351; 85379; 83880; 80061; 80053; 80048; 83690; 83735 ×2; 84484; 85025; 85027; 85610; 85730; 87635; 71046 ×2; G0378 ×2; C8929; Q9950; 93306

== ENCOUNTER → 2022-09-28 | Outpatient (CLI) | payer MEDICARE ==
--- NOTE | 2022-09-28 13:15 | XR ---
EXAM TYPE: LUMBAR SPINE X RAY SERIES COMPARISON: NONE HISTORY: Pain TECHNIQUE: 4 views are submitted. FINDINGS: Alignment is anatomic. The pedicles are intact. The transverse processes are intact. There is ondina re degenerative disc disease L5-S1 with mild to moderate changes at levels L2-L5. Multilevel facet ar thropathy. Vascular calcifications noted. Facet arthropathy levels L3-S1. IMPRESSION: 1. Severe degenerative disc disease L5-S1 with multilevel degenerative disc disease and facet arthrop athy. Suspect foraminal encroachment and L5-S1. Recommend follow-up MRI.
== END | disposition home or self-care (01) ==
LOC: RADXRMAIN 12:36
PROVIDERS: ATTEND Physical Medicine & Rehabilitation
DX: M51.37 Other intervertebral disc degeneration, lumbosacral region (principal); M47.817 Spondylosis without myelopathy or radiculopathy, lumbosacral region
CPT/HCPCS: 72110